=== PATIENT | female | born 1995 | race Caucasian/White ===

== ENCOUNTER 2017-01-03 22:49 | Emergency (ER) | payer OTHER ==
[~2017-01-03] VITALS: Ht 162.6 cm; Wt 56.9 kg
[2017-01-03 22:53] VITALS: TEMP 36.6; Ht 162.6 cm; Wt 56.9 kg
[2017-01-03] MEDS ORDERED: BCPILLS PO (23:23)
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
[2017-01-04 00:28] VITALS: BP 113/73; PULSE 75; O2SAT 98
[2017-01-04] MEDS ORDERED: ONDANSETRON 4MG OD TAB PO ONE (00:30)
[2017-01-04] MEDS ORDERED: ONDANSETRON HOME PACK 4MG OD TAB PO ONE (00:30)
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
== END 2017-01-04 00:29 | disposition home or self-care (01) ==
LOC: C.EDB 22:52
DX: S09.90XA Unspecified injury of head, initial encounter (principal); S06.0X0A Concussion without loss of consciousness, initial encounter; W22.8XXA Striking against or struck by other objects, initial encounter